=== PATIENT | female | born 1995 | race Caucasian/White ===

== ENCOUNTER 2016-12-30 22:48 | Emergency (ER) | payer SELFPAY ==
--- NOTE | 2016-12-30 22:59 | PDOC ---
History of Present Illness - History of Present Illness Initial Comments: 12/31/16 01:31 Patient is a 21 year old female (10 weeks) with significant medical hx of recurrent gastritis who is presenting to the ED with nausea, vomiting, and epigastric pain for two weeks. Patient reports she is unsure if her symptoms are a result of her or another episode of her gastritis. Patient came to the ED today because she is unable to keep anything down. The patient has been seen by multiple hospitals today for this complaint. Denies fever, chills, dysuria, hematuria, and diarrhea. <Lachelle Christensen - Last Filed: 12/31/16 01:31> <Cony Olmos - Last Filed: 12/31/16 01:59> - General Stated Complaint: PAIN Time Seen by Provider: 12/30/16 22:58 Past History <Lachelle Christensen - Last Filed: 12/31/16 01:31> <Cony Olmos - Last Filed: 12/31/16 01:59> - Past Medical History Allergies/Adverse Reactions: Allergies Allergy/AdvReac Type Severity Reaction Status Date / Time Penicillins Allergy Verified 12/31/16 00:18 Home Medications: Ambulatory Orders Famotidine [Pepcid -] 20 mg PO BID 12/30/16 Ondansetron [Zofran -] 4 mg PO TID 12/30/16 Prochlorperazine Maleate [Compazine] 5 mg PO Q6H PRN 12/30/16 Pyridoxine HCl [Vitamin B-6] 50 mg PO TID 12/30/16 Review of Systems - Review of Systems Comments:: 12/31/16 01:33 CONSTITUTIONAL: Absent: fever, chills, diaphoresis, generalized weakness, malaise, loss of appetite HEENT: Absent: rhinorrhea, nasal congestion, throat pain, throat swelling, difficulty swallowing, mouth swelling, ear pain, eye pain, visual changes CARDIOVASCULAR: Absent: chest pain, syncope, palpitations, irregular heart rate, lightheadedness , peripheral edema RESPIRATORY: Absent: cough, shortness of breath, dyspnea with exertion, orthopnea, wheezing, stridor, hemoptysis GASTROINTESTINAL: Present: epigastric pain, nausea, vomiting Absent: abdominal distension, diarrhea, constipation, melena, hematochezia GENITOURINARY: Absent: dysuria, frequency, urgency, hesitancy, hematuria, flank pain, genital pain MUSCULOSKELETAL: Absent: myalgia, arthralgia, joint swelling SKIN: Absent: rash, itching, pallor HEMATOLOGIC/IMMUNOLOGIC: Absent: easy bleeding, easy bruising, lymphadenopathy, frequent infections ENDOCRINE: Absent: unexplained weight gain, unexplained weight loss, heat intolerance, cold intolerance NEUROLOGIC: Absent: headache, focal weakness or paresthesia, dizziness, unsteady gait, seizure, mental status changes, bladder or bowel incontinence. PSYCHIATRIC: Absent: anxiety, depression, suicidal or homicidal ideation, hallucinations <Lachelle Christensen - Last Filed: 12/31/16 01:31> *Physical Exam - Vital Signs Last Vital Signs Temp Pulse Resp BP Pulse Ox 97.4 F L 86 18 79/64 100 12/30/16 23:08 12/30/16 23:08 12/30/16 23:08 12/30/16 23:08 12/30/16 23:08 - Physical Exam Comments: 12/31/16 01:34 GENERAL: Well developed, well nourished. Awake and alert. No acute distress. HEENT: Normocephalic, atraumatic. PERRLA, EOMI. No conjunctival pallor. Sclera are non- icteric. Moist mucous membranes. Oropharynx is clear. NECK: Supple. Full ROM. No JVD. Carotid pulses 2+ and symmetric, without bruits. No thyromegaly. No lymphadenopathy. CARDIOVASCULAR: Regular rate and rhythm. No murmurs, rubs, or gallops. Distal pulses are 2+ and symmetric. PULMONARY: No evidence of respiratory distress. Lungs clear to auscultation bilaterally. No wheezing, rales or rhonchi. ABDOMINAL: Soft. Epigastric tenderness. Non-distended. No rebound or guarding. No organomegaly. Normoactive bowel sounds. MUSCULOSKELETAL: Normal range of motion at all joints. No bony deformities or tenderness. No CVA tenderness. EXTREMITIES: No cyanosis. No clubbing. No edema. No calf tenderness. SKIN: Warm and dry. Normal capillary refill. No rashes. No jaundice. NEUROLOGICAL: Alert, awake, appropriate. Cranial nerves 2-12 intact. Normal speech. Gait is normal without ataxia. PSYCHIATRIC: Cooperative. Good eye contact. Appropriate mood and affect. <Lachelle Christensen - Last Filed: 12/31/16 01:31> ED Treatment Course - LABORATORY CBC & Chemistry Diagram: 12/30/16 23:34 12/30/16 23:34 - ADDITIONAL ORDERS Additional order review: Laboratory Results 12/30/16 12/30/16 23:34 23:30 Sodium 135 L Potassium 3.8 Chloride 101 Carbon Dioxide 17 L Anion Gap 17 H BUN 7 Creatinine 0.8 Creat Clearance w eGFR > 60 Random Glucose 120 H Calcium 9.7 Total Bilirubin 1.4 H AST 17 ALT 15 Alkaline Phosphatase 69 Total Protein 8.3 H Albumin 4.2 Lipase 129 Beta HCG, Quant 87623.4 12/30/16 23:34 RBC 5.07 MCV 86.0 MCHC 33.6 RDW 12.7 MPV 8.2 Neutrophils % 85.9 H Lymphocytes % 9.2 Monocytes % 4.7 Eosinophils % 0.0 Basophils % 0.2 - RADIOLOGY Radiograph Interpretation: 12/31/16 01:35 Book Reviewer: (alla) Report Date: 12/31/2016 00:53:00 Report Status: Preliminary Begin of Report Content Referring Physician: Cony Olmos Patient Name: Mandi Ram THIS IS A PRELIMINARY REPORT FROM IMAGING INSPECTOR BOILER EXAM: Ultrasound first trimester and pelvic duplex IMAGES: 23 INDICATION: Severe vomiting DATE OF SERVICE: 2016-12-31 00:53:47.0 COMPARISON: none FINDINGS: Ultrasound :Uterus is anteverted and measures 13.1centimeters in length. There is a single live IUP with estimated gestational age of 11weeks and 2days. There is a normal heart rate of 161beats per minute. There is no subchorionic bleed. The right ovary measures 3.2centimeters in length and appears normal. The left ovary measures 2.7centimeters in length and appears normal. There is no significant free fluid. Pelvic duplex: There is normal arterial flow in both ovaries. IMPRESSION: Live IUP with estimated age 11 weeks 2 days, without definite abnormalities THIS DOCUMENT HAS BEEN ELECTRONICALLY SIGNED Nikunj Hair MD 12/31/2016 01:14 MANNY Tierney Please call Imaging Snowmobile Mechanic [phone] ([phone]) with questions. End of Report Content - Medications Given in the ED: ED Medications Discontinued Medications Generic Name Dose Route Start Last Admin Trade Name Ernesto PRN Reason Stop Dose Admin Acetaminophen 1,000 mg 12/31/16 00:07 12/31/16 00:15 Ofirmev Injection - IVPB 12/31/16 00:08 1,000 mg ONCE ONE Administration Famotidine/Sodium Chloride 50 mls @ 100 mls/hr 12/30/16 23:08 12/30/16 23:49 Pepcid 20 Mg Premixed Ivpb - IVPB 12/30/16 23:37 100 mls/hr ONCE ONE Administration Sodium Chloride 1,000 mls @ 1,000 mls/hr 12/30/16 23:08 12/30/16 23:49 Normal Saline - IV 12/31/16 00:07 1,000 mls/hr ASDIR STA Administration Ondansetron HCl 4 mg 12/30/16 23:08 12/30/16 23:49 Zofran Injection IVPB 12/30/16 23:09 4 mg ONCE ONE Administration <Lachelle Christensen - Last Filed: 12/31/16 01:31> - LABORATORY CBC & Chemistry Diagram: 12/30/16 23:34 12/30/16 23:34 <Cony Olmos - Last Filed: 12/31/16 01:59> Medical Decision Making - Medical Decision Making 12/31/16 01:53 21 yo female with history of gastritis p/w epigastric pain -she s about 10 week pregnent and has recent GI w/u and tx at [facility] -no fever,no diarrhea,no vag bleeding , no pelvic cramping pel US Sl IUP 11 weeks 2 days fht 161,normal ovaries -pt given IVFmIV tylenol, IV pepesid,maalox ,zofran PMH IMP gastritis/ plan discharge home and follow up with [email or web address] database architect for contiuned care <Cony Olmos - Last Filed: 12/31/16 01:59> *DC/Admit/Observation/Transfer - Attestations Scribe Attestion: 12/31/16 01:37 Documentation prepared by Lachelle Christensen, acting as medical device sales consultant for Cony Olmos MD. <Lachelle Christensen - Last Filed: 12/31/16 01:31> <Cony Olmos - Last Filed: 12/31/16 01:59> Diagnosis at time of Disposition: Gastritis Qualifiers: Gastritis type: unspecified gastritis Chronicity: unspecified Gastritis bleeding: without bleeding Qualified Code(s): K29.70 - Gastritis, unspecified, without bleeding Qualifiers: Weeks of gestation: 11 weeks Qualified Code(s): Z3A.11 - 11 weeks gestation of - Discharge Dispostion Condition at time of disposition: Stable - Patient Instructions Printed Discharge Instructions: DI for Gastritis, DI for -- Discomforts and Remedies, DI for Hyperemesis Gravidarum Additional Instructions: please followup with your outreach consultant for continued care Print Language: TUNISIAN
[2016-12-30] MEDS ORDERED: SODIUM CHLORIDE 1,000 ML IV STA (23:08)
[2016-12-30] MEDS ORDERED: ONDANSETRON 4 MG/2 ML VIAL IVPB ONE (23:08)
[2016-12-30] MEDS ORDERED: FAMOTIDINE 20 MG/50 ML IVPB 50 ML IVPB ONE ×2 (23:08→23:32)
[2016-12-30 23:16] VITALS: TEMP 97.4; BMI 18.4
[2016-12-30] MEDS ORDERED: ONDANSETRON 4 MG/2 ML VIAL ONE (23:32)
[2016-12-30 23:55] LABS: BASOPHIL 0.2 % (0-2.0); MCH 28.9 pg (25.7-33.7); MCHC 33.6 g/dl (32.0-36.0); MEAN PLT VOLUME 8.2 fl (7.5-11.1); NEUTROPHILS 85.9 % (42.8-82.8); PLATELET COUNT 280 K/MM3 (134-434); RDW 12.7 % (11.6-15.6); WHITE BLOOD COUNT 9.5 K/mm3 (4.0-10.0)
[2016-12-31] MEDS ORDERED: ACETAMINOPHEN 1000 MG/100 ML VIAL (NON FORMULARY) IVPB ONE (00:07)
[2016-12-31] MEDS ORDERED: ACETAMINOPHEN INJECTION 100 ML IVPB ONE (00:10)
[2016-12-31 00:24] LABS: ALBUMIN 4.2 g/dl (3.4-5.0); ANION GAP 17 (8-16); BILIRUBIN,TOTAL 1.4 mg/dL (0.2-1.0); CALCIUM 9.7 mg/dL (8.5-10.1); CO2 17 mmol/L (21-32); CREATININE 0.8 mg/dL (0.55-1.02); GLUCOSE,RANDOM 120 mg/dL (74-106); SGOT/AST 17 U/L (15-37); SGPT/ALT 15 U/L (12-78); TOT PROT 8.3 g/dl (6.4-8.2)
[2016-12-31 00:25] LABS: ALK PHOS 69 U/L (45-117)
[2016-12-31] MEDS ORDERED: SODIUM CHLORIDE 1,000 ML IV STA (01:24)
[2016-12-31] MEDS ORDERED: MAG HYDROX/AL HYDROX/SIMETH 355 ML ORAL.SUSP PO ONE (01:52)
--- NOTE | 2016-12-31 02:38 | PDOC ---
*Physical Exam - Vital Signs Last Vital Signs Temp Pulse Resp BP Pulse Ox 97.4 F L 86 18 79/64 100 12/30/16 23:08 12/30/16 23:08 12/30/16 23:08 12/30/16 23:08 12/30/16 23:08 ED Treatment Course - LABORATORY CBC & Chemistry Diagram: 12/30/16 23:34 12/30/16 23:34 - ADDITIONAL ORDERS Additional order review: Laboratory Results 12/30/16 12/30/16 23:34 23:30 Sodium 135 L Potassium 3.8 Chloride 101 Carbon Dioxide 17 L Anion Gap 17 H BUN 7 Creatinine 0.8 Creat Clearance w eGFR > 60 Random Glucose 120 H Calcium 9.7 Total Bilirubin 1.4 H AST 17 ALT 15 Alkaline Phosphatase 69 Total Protein 8.3 H Albumin 4.2 Lipase 129 Beta HCG, Quant 45848.4 12/30/16 23:34 RBC 5.07 MCV 86.0 MCHC 33.6 RDW 12.7 MPV 8.2 Neutrophils % 85.9 H Lymphocytes % 9.2 Monocytes % 4.7 Eosinophils % 0.0 Basophils % 0.2 - RADIOLOGY Radiology Studies Ordered: Category Date Time Status <14WKS US [US] Stat Ultrasound 12/31/16 23:46 Taken - Medications Given in the ED: ED Medications Discontinued Medications Generic Name Dose Route Start Last Admin Trade Name Ernesto PRN Reason Stop Dose Admin Acetaminophen 1,000 mg 12/31/16 00:07 12/31/16 00:15 Ofirmev Injection - IVPB 12/31/16 00:08 1,000 mg ONCE ONE Administration Al Hydroxide/Mg Hydroxide 30 ml 12/31/16 01:52 12/31/16 01:55 Mylanta Suspension - PO 12/31/16 01:53 30 ml ONCE ONE Administration Famotidine/Sodium Chloride 50 mls @ 100 mls/hr 12/30/16 23:08 12/30/16 23:49 Pepcid 20 Mg Premixed Ivpb - IVPB 12/30/16 23:37 100 mls/hr ONCE ONE Administration Sodium Chloride 1,000 mls @ 1,000 mls/hr 12/30/16 23:08 12/30/16 23:49 Normal Saline - IV 12/31/16 00:07 1,000 mls/hr ASDIR STA Administration Sodium Chloride 1,000 mls @ 1,000 mls/hr 12/31/16 01:24 12/31/16 01:51 Normal Saline - IV 12/31/16 02:23 1,000 mls/hr ASDIR STA Administration Ondansetron HCl 4 mg 12/30/16 23:08 12/30/16 23:49 Zofran Injection IVPB 12/30/16 23:09 4 mg ONCE ONE Administration *DC/Admit/Observation/Transfer Diagnosis at time of Disposition: Gastritis Qualifiers: Gastritis type: unspecified gastritis Chronicity: unspecified Gastritis bleeding: without bleeding Qualified Code(s): K29.70 - Gastritis, unspecified, without bleeding Qualifiers: Weeks of gestation: 11 weeks Qualified Code(s): Z3A.11 - 11 weeks gestation of - Discharge Dispostion Disposition: HOME Condition at time of disposition: Stable - Referrals - Patient Instructions Printed Discharge Instructions: DI for Hyperemesis Gravidarum, DI for Gastritis , DI for -- Discomforts and Remedies Additional Instructions: please followup with your planting material unloader for continued care Print Language: LIBERIAN - Post Discharge Activity
[2016-12-31 02:46] VITALS: BP 94/52; PULSE 74
== END 2016-12-31 02:54 | disposition home or self-care (01) ==
LOC: JER 22:48
PROC: 3E0337Z Introduction of Electrolytic and Water Balance Substance into Peripheral Vein, Percutaneous Approach (ICD-10-PCS; principal; 2016-12-30)
PROC: 3E033GC Introduction of Other Therapeutic Substance into Peripheral Vein, Percutaneous Approach (ICD-10-PCS; 2016-12-30)
PROC: 3E033NZ Introduction of Analgesics, Hypnotics, Sedatives into Peripheral Vein, Percutaneous Approach (ICD-10-PCS; 2016-12-30)
PROC: 3E033GC Introduction of Other Therapeutic Substance into Peripheral Vein, Percutaneous Approach (ICD-10-PCS; 2016-12-30)
DX: O99.89 Other specified diseases and conditions complicating pregnancy, childbirth and the puerperium (principal); K29.70 Gastritis, unspecified, without bleeding; Z3A.11 11 weeks gestation of pregnancy
CPT/HCPCS: 36415; 76801-TC; 80053; 83690; 84702; 85025; 96361; 96365; 96375; 99283-25